=== PATIENT | female | born 2000 | race American Indian/Alaskan Native ===

== ENCOUNTER 2019-09-06 15:49 | Emergency (ER) | payer SELFPAY ==
--- NOTE | 2019-09-06 16:12 | Event Note ---
ED Screening Note ED Screening Note: CC: "I'm tripping. Leia is a 19 yo female who presents with auditory hallucinations after smoking marijuana. This initial assessment/diagnostic orders/clinical plan/treatment(s) is/are subject to change based on patients health status, clinical progression and re- assessment by fellow clinical providers in the ED. Further treatment and workup at subsequent clinical providers discretion. Patient/guardian urged not to elope from the ED as their condition may be serious if not clinically assessed and man aged. Initial orders include: labs, MH consult
[2019-09-06 16:14] VITALS: BP 115/76
[2019-09-06 17:13] LABS: Amorphous Crystals,Urine Few; Mucus,Urine 2+ /HPF
[2019-09-06 17:14] LABS: Amphetamine Screen,Urine PRESUMPTIVE NEGATIVE; Benzodiazepines Screen,Urine PRESUMPTIVE NEGATIVE; Cocaine Screen,Urine PRESUMPTIVE NEGATIVE; Methadone Screen,Urine PRESUMPTIVE NEGATIVE; Opiate Screen,Urine PRESUMPTIVE NEGATIVE
[2019-09-06 17:26] LABS: Cannabinoid Screen,Urine PRESUMPTIVE POSITIVE
[2019-09-06 17:32] LABS: Bilirubin,Urine Negative (Negative); Color,Urine Yellow (Yellow)
[2019-09-06 17:33] LABS: Blood,Urine Negative (Negative)
== END 2019-09-06 21:15 | disposition left against medical advice (07) ==
LOC: ED 15:49
DX: R45.851 Suicidal ideations (principal); Z53.21 Procedure and treatment not carried out due to patient leaving prior to being seen by health care provider
CPT/HCPCS: 80307; 81001